=== PATIENT | male | born 1935 | race Caucasian/White ===

== ENCOUNTER 2022-10-24 06:48 | Day surgery (SDC) | payer MEDICARE, OTHER ==
[2022-10-19 11:59] VITALS: BP 163/82
[2022-10-24] VITALS (7 sets, daily range): BP systolic 109–192; BP diastolic 54–90
[~2022-10-24] VITALS: Ht 177.8 cm; Wt 82.7 kg
[~2022-10-24 06:48] MED LIST: AMLODIPINE BESY10 MG PO; DOXAZOSIN MESYLA2 MG PO; ENALAPRIL MALEA20 MG PO; FLOMAX0.4 MG PO; HYDROCHLOROTHIA25 MG PO; LEVOTHYROXINE25 MC1 PO; LISINOPRIL20 MG PO; METFORMIN HCL850 MG PO; TOPROL XL100 MG PO
--- NOTE | 2022-10-24 12:51 | NUR ---
10/24/22 1251 Katheryn Barajas 1240-PT TO PACU IN SF POSITION. EYES CLOSED. PT REACTIVE TO TACTILE STIMULI. DOES NOT KEEP EYES OPEN OR FOLLOW COMMANDS. BREATHING EASY AND UNLABORED. SPO2 >95% ON 6 L O2 VIA SIMPLE MASK. CBI RUNNING. CLEAR DRAINAGE OBSERVED IN CATEHETER TUBING. 1245- PT MOVING EXTREMITIES AND OPENS EYES TO VERBAL STIMULI. PT NODS HEAD YES TO COMFORT. PT REMOVES O2 MASK. PT ENCOURAGED TO TAKE DEEP BREATHS. SPO2 >95% ON 6 L O2 VIA SIMPLE MASK. O2 TITRATED DOWN TO ROOM AIR. 1250- PT RESTING COMFORTABLY. BREATHING EASY AND UNLABORED. SPO2 >90% ON ROOM AIR. PT AWAKENS SPONTANEOUSLY AND NODS HEAD YES TO COMFORT.
--- NOTE | 2022-10-24 13:32 | NUR ---
PT TO FLOOR VIA BED WITH DEMETRIA DUFFY AND RN STUDENT. PT AWAKE BUT DROWSY. VS STABLE. MARTINEZ DRAINING LIGHT PINK URINE. DENIES PAIN.
[2022-10-24] MEDS ORDERED: TRAMADOL HCL50 MG PO (14:02)
[2022-10-24] MEDS ORDERED: CIPRO250 MG PO (14:05)
--- NOTE | 2022-10-24 14:06 | NUR ---
ENTERED PATIENT'S ROOM TO DO THE PATIENT ASSESSMENT. PATIENT IS SLEEPING AND IS UNABLE TO ANSWER QUESTIONS.THE PLODDING OPERATOR WILL CHECK BACK LATER.
--- NOTE | 2022-10-24 15:45 | NUR ---
In to speak with patient. SLeeping at this time. Allowed to rest.
[2022-10-24] MEDS ORDERED: VITAMIN D3125 MC2 PO (16:39)
--- NOTE | 2022-10-24 16:40 | NUR ---
MED REC COMPLETE
[2022-10-24] MEDS ORDERED: SYNTHROID25 MCG PO (16:41)
--- NOTE | 2022-10-24 16:59 | NUR ---
pt is currently visiting with his son and daughter in [place] no cares needed t this time call light within reach
--- NOTE | 2022-10-24 17:16 | NUR ---
PATIENT ALERT AND ORIENTED, SITTING UP IN BED. FAMILY IN ROOM. STATES HE LIVES HOME ALONE, ABLE TO NAVIGATE HOME WITHOUT ISSUES. DOES NOT HAVE ANY DME. DRIVES SELF. ABLE TO GET TO APPOINTMENTS, PHARMACY, ETC. WITHOUT DIFFICULTY. SONS IN ROOM VERIFY INFORMATION. PATIENT CAN NOT THINK OF ANY NEEDS HE HAS AT HOME. INSTRUCTED TO NOTIFY STAFF IF SOMETHING ARISES.
--- NOTE | 2022-10-24 19:40 | NUR ---
REPORT RECEIVED FROM DAY SHIFT RN. PT LYING IN BED ALERT AND ORIENTED. CBI AT SLOW DRIP. URINE LIGHT PINK IN TUBING. NO CLOTS NOTED. PT DENIES NEEDS. WHITE BOARD UPDATED. CALL LIGHT IN REACH.
--- NOTE | 2022-10-24 21:42 | NUR ---
EVENING ASSESSMENT COMPLETE. SCHEDULED MEDS ADMIN PER EMAR. PT DENIES PAIN OR NAUSEA. CBI INFUSING AT SLOW DRIP. URINE LIGHT PINK IN TUBING. MARTINEZ CATH CARE DONE. SMALL AMOUNT BLEEDING NOTED AROUND CATHETER INSERTION SITE. ASSISTED PT TO REPOSITION. SCD'S IN PLACE. IVF INFUSING PER ORDER. CPOX IN PLACE. SpO2 HIGH 90'S ON RA. HR 70'S. PT DENIES QUESTIONS OR CONCERNS. CALL LIGHT IN REACH.
--- NOTE | 2022-10-24 23:22 | NUR ---
PT RESTING IN BED WITH EYES CLOSED. RESPIRATIONS EVEN. SpO2 96% ON RA. HR 70'S.
--- NOTE | 2022-10-25 00:41 | NUR ---
PT RESTING WITH EYES CLOSED. RESPIRATIONS EVEN. URINE LIGHT PINK IN TUBING. CBI INFUSING AT A SLOW DRIP. CPOX IN PLACE. SpO2 93% ON RA. HR 70'S.
[2022-10-25 01:13] VITALS: BP 135/58
--- NOTE | 2022-10-25 01:13 | NUR ---
CALL LIGHT ANSWERED. PT CONCERNED SCD'S NOT WORKING PROPERLY. SCD'S CHECKED AND APPEAR TO BE WORKING PROPERLY. VS AND I&O OBTAINED. URINE LIGHT PINK. NO CLOTS NOTED. CBI CLAMPED AT THIS TIME. NO FURTHER NEEDS.
--- NOTE | 2022-10-25 04:15 | NUR ---
CALL LIGHT ANSWERED. ASSISTED PT TO REPOSITION. URINE REMAINS CLEAR LIGHT PINK. CBI REMAINS CLAMPED. COFFEE PROVIDED. NO FURTHER NEEDS.
[2022-10-25 05:32] VITALS: BP 162/67
--- NOTE | 2022-10-25 05:47 | NUR ---
PT UP TO BSC TO ATTEMPT BM, WAS ONLY ABLE TO PASS GAS. BACK TO BED, BREANNA WELL. SCD'S IN PLACE. CBI CLAMPED. URINE LIGHT PINK. SMALL AMOUNT BLEEDING NOTED AROUND URINARY MEATUS. MARTINEZ CARE DONE. PT DENIES PAIN OR NAUSEA. VS AND I&O OBTAINED. NO FURTHER NEEDS. CALL LIGHT IN REACH.
--- NOTE | 2022-10-25 07:30 | NUR ---
RECIEVED REPORT FROM NIGHTSHIFT NURSE. PT IS CURRENTLY AWAKE AND ORIENTED. PT IS EXCITED TO BE LEAVING TODAY. NO OTHER CARES NEEDED AT THIS TIME.CALL LIGHT WITHIN REACH
--- NOTE | 2022-10-25 07:37 | NUR ---
PT RESTING IN BED. BS TAKEN. PT HAS NO NEEDS. CALL LIGHT WITHIN REACH
[2022-10-25 09:16] VITALS: BP 140/67
--- NOTE | 2022-10-26 18:05 | OR ---
[facility] [address] [place], [place] [address] Signed DATE OF OPERATION: 10/24/2022 SURGEON: Emerita Arnett MD PREOPERATIVE DIAGNOSES: 1. Urinary retention with incomplete bladder emptying. 2. History of benign prostatic hypertrophy with lower urinary tract symptoms, status post TURP. 3. 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 POSTOPERATIVE DIAGNOSES: 1. Urinary retention with incomplete bladder emptying. 2. History of benign prostatic hypertrophy with lower urinary tract symptoms, status post TURP. 3. 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 PROCEDURES: 1. Urethral dilation using Maye sounds from 20-Northern Irish to 28-Northern Irish. 2. Transurethral resection of prostate. ANESTHESIA: General. ESTIMATED BLOOD LOSS: 100 mL. COMPLICATIONS: None. SPECIMENS: Prostate chips sent to Pathology for evaluation. DRAINS: A 22-Northern Irish three-way Amos catheter, connected to continuous bladder irrigation. INDICATIONS FOR PROCEDURE: Mr. 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 In 2014 or so, he underwent transurethral resection of prostate by Dr. Nighat Mauricio MD here at [facility]. Prior to that he had been experiencing years of long-standing bladder Electronically Signed By: EMERITA ARNETT MD 10/26/22 1805 PATIENT NAME: TAMI BARKER OPERATIVE REPORT DATE OF : 37 REPORT #: [id number] PHYSICIAN: EMERITA ARNETT MD PCP: NANCY CARBALLO DO REPORT IS CONFIDENTIAL AND NOT TO BE RELEASED WITHOUT AUTHORIZATION [facility] [address] [place], [place] [address] Signed outlet obstruction with associated lower urinary tract symptoms. He was referred to me recently after he presented to his primary care physician with complaints of bilateral flank pain. A bladder scan was performed at that time and his PVR was over 550 mL. He was started on daily Flomax and then he was sent to dc and his PVR had not improved significantly. He subsequently underwent diagnostic cystoscopy, which revealed significant regrowth of the median lobe of his prostate after undergoing TURP. There were some areas of obvious prior resection, however, the middle lobe of the prostate had mostly grown back and was actively obstructing him again. After discussion of the risks and benefits of the procedure, the patient agreed to undergo a repeat transurethral resection of the prostate. OPERATIVE FINDINGS: 1. Digital rectal examination reveals a 70 g prostate that is soft, smooth and symmetric with no focal nodules. 2. Cystoscopy revealed no evidence of any suspicious masses, lesions, or stones. Bilateral ureteral orifices are in their normal anatomic location. The ureteral orifices were also noted to be a good distance away from the median lobe of the prostate. 3. The patient's middle lobe was resected using a 23-Northern Irish bipolar loop. I also resected a good deal of the left lateral lobe of the prostate as well. There was a small amount of regrowth of the right lateral lobe that was also resected. The resection was performed down to the level of the verumontanum as per routine. 4. At the end of the procedure, a 22-Northern Irish three-way Amos catheter was inserted in the patient's bladder over a Sensor wire. The balloon was filled with 35 mL of sterile water. The catheter was then connected to continuous bladder irrigation. DESCRIPTION OF PROCEDURE: After informed consent was obtained, the patient was taken back to the operating room. He was transferred from the [facility] to the operating room table, where general anesthesia was induced. He was placed in the dorsal lithotomy position and his genitalia prepped and draped in standard sterile fashion. His fossa navicularis and urethral meatus were then dilated using [place] sounds from 20-Northern Irish to 28-Northern Irish without difficulty. I then inserted a 26-Northern Irish sheath using a visual obturator and a 30-degree lens. This was switched out for a resectoscope with a 23-Northern Irish bipolar loop. I immediately evaluated the location of the bilateral ureteral orifices. Please see above findings. I resected the attila median lobe that had regrown since his prior TURP. Once I resected the median lobe, I then resected what appeared to be a good deal of regrowth of the adenoma in the left lateral lobe of the prostate. Dissection was taken down to the level of verumontanum. A small amount of resection was performed on the right lateral lobe as well. The prostate chips were extracted from the patient's bladder using a Venu syringe and hemostasis was achieved and maintained using the bipolar loop, followed by the bipolar button toward the end of procedure. Once I was satisfied that Electronically Signed By: EMERITA ARNETT MD 10/26/22 8140 PATIENT NAME: TAMI BARKER OPERATIVE REPORT DATE OF : 37 REPORT #: [id number] PHYSICIAN: EMERITA ARNETT MD PCP: NANCY CARBALLO DO REPORT IS CONFIDENTIAL AND NOT TO BE RELEASED WITHOUT AUTHORIZATION [address] [address] Signed all of the obstructing tissue had been removed, I irrigated the bladder once again and took care of any residual bleeders. There was a small defect in the capsule towards the left proximal aspect of the prostatic urate urethra that did ooze a little bit of blood, however, there was no significant hemorrhage in this area. The resectoscope and sheath were then removed from the patient's bladder. A [address]os catheter was then inserted over a sensor wire without difficulty, and the balloon was filled with 35 ccs of sterile water. The patient's catheter was then manually irrigated multiple times, and then connected to continuous bladder irrigation. A digital rectal examination was then performed. The procedure was then terminated. The patient tolerated the procedure well without complication. He will now be transferred to the PACU in stable condition. DISPOSITION: The patient will be transferred to the floor today for management of his continuous bladder irrigation. His CBI will be weaned off by tomorrow AM, at which time he will be discharged to home with his amos catheter to gravity drainage. He will be given pain control as needed, and his diet will be advanced as tolerated. The patient will RTC in three days to undergo a voiding trial. MD JOSÉ MIGUEL Santiago/JODEE /[id number] Copies: ~ Electronically Signed By: EMERITA ARNETT MD 10/26/22 1805 PATIENT NAME: TAMI BARKER OPERATIVE REPORT DATE OF : 37 REPORT #: [id number] PHYSICIAN: EMERITA ARNETT MD PCP: NANCY CARBALLO DO REPORT IS CONFIDENTIAL AND NOT TO BE RELEASED WITHOUT AUTHORIZATION
--- NOTE | 2022-10-28 06:09 | PATH ---
[facility] [address] [place], [place] [address] Signed SPECIMEN(S): A PROSTATE CHIPS SPECIMEN SOURCE: A. PROSTATE CHIPS CLINICAL HISTORY: OAB, BPH with LUTS FINAL PATHOLOGIC DIAGNOSIS: Prostate chips, TUR: - Benign prostatic tissue with stromal and glandular hyperplasia. - Urothelium with focal reactive features. - Focal mild chronic stromal and glandular inflammation. JVR:[facility] MICROSCOPIC EXAMINATION: Histologic sections of all submitted blocks are examined by light microscopy. These findings, together with the gross examination, support the pathologic diagnosis. Immunostains are performed with appropriate controls on block (A2) and show the following: - CK5: Positive in basal and majorit of the urothelium of concern. - CK20: Negative for full thickness urothelial staining in area of concern. JVR:[facility] GROSS DESCRIPTION: The specimen, labeled and designated "VirgilAndrew, " and designated on the requisition "prostate chips," is received in formalin is a 13 g, 6.0 x 5.5 x 1.5 cm aggregate of pink-cardenas to daily rubbery soft tissue. Approximately 60% of the specimen is submitted in (A1-A8). FB (under the direct supervision of a pathologist) The Gross Description was prepared using a voice recognition system. The report was reviewed for accuracy; however, sound-alike word errors, addition and/or deletions may occur. If there is any question about this report, please contact Client Services. ADDITIONAL NOTES: Immunohistochemical and/or in situ hybridization studies were performed on this case with the appropriate positive controls that react as expected. This test was developed and its performance characteristics determined by [facility]. It has not been cleared or PATIENT NAME: TAMI BARKER PATHOLOGY DATE OF : 37 REPORT #: [id number] PHYSICIAN: ERIKA SU PCP: NANCY CARBALLO DO REPORT IS CONFIDENTIAL AND NOT TO BE RELEASED WITHOUT AUTHORIZATION [facility] [address] [facility] [place] [address] Signed approved by the U.S. Food and Drug Administration. The FDA has determined that such clearance or approval is not necessary. This test is used for clinical purposes. It should not be regarded as investigational or for research. [facility] is certified under the Clinical Laboratory Improvement Amendments of 1988 (CLIA) as qualified to perform high complexity clinical laboratory testing. This assay has not been validated for specimens that have been decalcified. PERFORMING LABORATORY: Technical component was performed by [facility], [address] [place] [id number] (CLIA# [id number]). Professional interpretation was performed by [facility], [address] [place] [id number] (CLIA#: [id number]). Diagnostician: Chevy Torres MD Pathologist Electronically Signed 10/27/2022 Copies: ~ PATIENT NAME: TAMI BARKER PATHOLOGY DATE OF : 37 REPORT #: [id number] PHYSICIAN: ERIKA SU PCP: NANCY CARBALLO DO REPORT IS CONFIDENTIAL AND NOT TO BE RELEASED WITHOUT AUTHORIZATION
== END 2022-10-25 10:19 | disposition home or self-care (01) ==
LOC: DS 06:48 → MS 13:22 → DS 10-25 10:19
PROVIDERS: ATTEND Urology
PROC: 0T7D3ZZ Dilation of Urethra, Percutaneous Approach (ICD-10-PCS; 2022-10-24)
PROC: 0VT08ZZ Resection of Prostate, Via Natural or Artificial Opening Endoscopic (ICD-10-PCS; principal; 2022-10-24 09:55)
DX: N40.1 Benign prostatic hyperplasia with lower urinary tract symptoms (principal); R33.8 Other retention of urine; R39.14 Feeling of incomplete bladder emptying
CPT/HCPCS: 00914; 88305; 88341; 88342; C1769; J0131; J0690; J0696; J1100; J1815; J2001; J2405; J2704; J3010; J3475; J3490; J7121

== ENCOUNTER 2023-01-20 08:12 | Emergency (ER) | payer MEDICARE, OTHER ==
[~2023-01-20] VITALS: Ht 177.8 cm; Wt 82.6 kg
[~2023-01-20 08:12] MED LIST changes: +CIPRO250 MG PO; +SYNTHROID25 MCG PO; +TRAMADOL HCL50 MG PO; +VITAMIN D3125 MC2 PO
[2023-01-20 10:34] LABS: BASOPHILS 0.5 % (0-2); EOSINOPHILS 2.9 % (0-6); HEMATOCRIT 32.7 % (35.0-50.0); LYMPHOCYTES 13.7 % (24-44); MCH 30.4 (27-36); MCHC 33.7 g/dl (30-36); MCV 90.3 fl (81-99); NEUTROPHILS 74.9 % (39-80); PLATELET COUNT 247 K/uL (140-440); RBC 3.62 M/ul (4.3-5.7); RDW 16.2 (10.5-15.0)
--- NOTE | 2023-01-20 10:36 | EKG ---
[facility] [address] [facility] [place] [address] Signed Normal sinus rhythm Normal ECG When compared with ECG of 19-OCT-2022 12:17, premature atrial complexes are no longer present Confirmed by ALVARO MORRIS MD ([id number]) on 01/20/2023 10:36:15 AM Electronically Signed By: ALVARO MORRIS 01/20/23 1036 PATIENT NAME: TAMI BARKER Electrocardiogram DATE OF : 37 PHYSICIAN: ALVARO MORRIS REPORT #: [id number] REPORT IS CONFIDENTIAL AND NOT TO BE RELEASED WITHOUT AUTHORIZATION
[2023-01-20 10:45] LABS: ALBUMIN/GLOBULIN RATIO 0.73 (1.1-2.4); ANION GAP 10.7 (7-21); BILIRUBIN, TOTAL 0.4 ng/dL (0.2-1.0); BUN/CREATININE RATIO 12.37 (6.0-28.6); CALCIUM 9.9 mg/dL (8.5-10.1); CREATININE, SERUM 1.94 mg/dL (0.70-1.30); POTASSIUM 3.7 mmol/L (3.5-5.1); PROTEIN, TOTAL 7.1 g/dL (6.4-8.2)
[2023-01-20 12:40] VITALS: BP 139/73
== END 2023-01-20 12:41 | disposition home or self-care (01) ==
LOC: ED 08:12
PROVIDERS: Emergency Medicine
DX: M79.641 Pain in right hand (principal); R26.9 Unspecified abnormalities of gait and mobility; E11.9 Type 2 diabetes mellitus without complications; E03.9 Hypothyroidism, unspecified; Z91.81 History of falling; Z87.891 Personal history of nicotine dependence; Z88.8 Allergy status to other drugs, medicaments and biological substances; Z79.899 Other long term (current) drug therapy; Z79.84 Long term (current) use of oral hypoglycemic drugs
CPT/HCPCS: 36415; 70450; 73130; 80053; 83880; 85025; 93005; 93010; 93971; 99284-25

== ENCOUNTER 2024-05-12 11:43 | Emergency (ER) | payer MEDICARE, OTHER ==
[~2024-05-12] VITALS: Ht 177.8 cm; Wt 84.5 kg
[2024-05-12] MEDS ORDERED: ACETAMINOPHEN 500 MG TAB PO ONE (12:15)
[2024-05-12 13:20] LABS: BILIRUBIN, URINE NEGATIVE (negative); BLOOD/HGB, URINE TRACE-L (Negative); KETONE, URINE NEGATIVE (Negative); LEUK ESTERASE, URINE SMALL (negative); NITRITE, URINE NEGATIVE (negative)
[2024-05-12 14:01] LABS: EPITHELIAL CELLS, URINE TRANSITIONAL 1+ /lpf (0-1+)
[2024-05-12 14:02] LABS: BACTERIA, URINE 2+ /hpf (negative); CRYSTALS, URINE NONE SEEN (0-1+); WHITE BLOOD CELLS, URINE 21-40 /HPF (0-5)
[2024-05-12 14:03] LABS: CASTS, URINE NONE SEEN \\lpf; COLLECTION TYPE, URINE CLEAN CATCH; REFLEX CULTURE, URINE Yes (No)
[2024-05-12] MEDS ORDERED: CEPHALEXIN MONOHYDRATE 500 MG CAP PO ONE (15:15)
[2024-05-12] MEDS ORDERED: CEPHALEXIN500 M1 PO (15:22)
[2024-05-12 15:27] VITALS: BP 166/76
== END 2024-05-12 15:27 | disposition home or self-care (01) ==
LOC: ED 11:43
PROVIDERS: Emergency Medicine
DX: N39.0 Urinary tract infection, site not specified (principal); M25.551 Pain in right hip; E03.9 Hypothyroidism, unspecified; I10 Essential (primary) hypertension; E11.9 Type 2 diabetes mellitus without complications; Z79.84 Long term (current) use of oral hypoglycemic drugs; Z79.899 Other long term (current) drug therapy; Z88.8 Allergy status to other drugs, medicaments and biological substances; Z87.891 Personal history of nicotine dependence
CPT/HCPCS: 73502; 81001; 87088; 99283; A9270